=== PATIENT | female | born 1965 | race Caucasian/White ===

== ENCOUNTER 2017-08-09 20:14 | Emergency (ER) | payer SELFPAY ==
[~2017-08-09] VITALS: Ht 170.2 cm; Wt 70.0 kg
[~2017-08-09 20:14] MED LIST: HYDR-3533 PO; PERC10TA27 PO; [UNRECOGNIZED DRUG - CODE]
[2017-08-09 20:16] VITALS: BP 133/71; PULSE 80; RESP 15; TEMP 98.5; O2SAT 100
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
== END 2017-08-09 20:25 | disposition left against medical advice (07) ==
LOC: NED 20:14
DX: R55 Syncope and collapse (principal); Z53.21 Procedure and treatment not carried out due to patient leaving prior to being seen by health care provider
CPT/HCPCS: 99281

== ENCOUNTER 2017-08-10 03:55 | Emergency (ER) | payer SELFPAY ==
[~2017-08-10] VITALS: Ht 170.2 cm; Wt 70.0 kg
[2017-08-10 03:58] VITALS: BP 120/74; PULSE 84; RESP 16; TEMP 97.7; O2SAT 98
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
== END 2017-08-10 16:32 | disposition left against medical advice (07) ==
LOC: NEPD 03:55
DX: Z00.00 Encounter for general adult medical examination without abnormal findings (principal)
CPT/HCPCS: 99281